=== PATIENT | female | born 1960 | race Caucasian/White ===

== ENCOUNTER 2021-11-11 12:24 | Emergency (ER) | payer OTHER, SELFPAY ==
[2021-11-11] VITALS (15 sets, daily range): BP systolic 96–114; BP diastolic 57–74; PULSE 83–144; RESP 14–23; TEMP 36.8; O2SAT 94–100
--- NOTE | ~2021-11-11 | XR_ITS ---
EXAMINATION: XR chest 2V DATE: 11/11/2021 12:52 INDICATION: Chest pain. TECHNIQUE: Frontal and lateral views of the chest were obtained. COMPARISON: Rib radiographs 07/19/2010 FINDINGS: The chest demonstrates clear lungs without pneumonia, pleural effusion, or pneumothorax. Th e heart size is normal. IMPRESSION: 1. No acute cardiopulmonary disease. Reviewed, dictated and finalized at location A.
--- NOTE | 2021-11-11 12:26 | ECG_ITS ---
Measurements Intervals [place] Rate: 140 P: TN: 0 QRS: -3 QRSD: 103 T: 7 QT: 291 QTc: 444 Interpretive Statements SUPRAVENTRICULAR TACHYCARDIA ST DEPRESSION Electronically Signed On 11-12-2021 8:21:30 CDT by Nathen Lemus M.D.
[2021-11-11 12:41] LABS: Basophils Percent Auto 0.2 % (0.2-1.2); Eosinophils Absolute Auto 0.2 K/mm3 (0-0.3); Eosinophils Percent Auto 1.3 % (0-4.4); Hematocrit 35.1 % (37.0-47.0); Immature Granulocyte Absolute 0.09 K/mm3 (0.00-0.031); Immature Granulocyte Percent A 0.6 % (0-0.5); Lymphocytes Absolute Auto 1.54 K/mm3 (0.9-3.2); Lymphocytes Percent Auto 10.8 % (18.3-44.2); Mean Corpuscular HGB Conc 31.3 g/dl (32-36); Mean Corpuscular Hemoglobin 26.3 pg (26-34); Mean Platelet Volume 10.1 fl (7.4-10.4); Monocytes Absolute Auto 1.1 K/mm3 (0.1-0.6); Monocytes Percent Auto 7.5 % (2.6-8.5); Neutrophils Absolute Auto 11.3 K/mm3 (1.3-6.7); Neutrophils Percent Auto 79.6 % (45.5-73.1); Platelet Count Result 355 k/mm3 (150-375); Red Blood Count 4.18 M/mm3 (4.2-5.4); Red Cell Distribution Width 16.1 % (11.5-14.5); White Blood Count 14.2 K/mm3 (4.5-10.0)
[2021-11-11 12:53] LABS: INR 1.1; Prothrombin Time 13.5 Seconds (11.1-14.7)
[2021-11-11 12:54] LABS: Alanine Aminotransferase 16 U/L (6-35); Albumin Level 4.1 g/dL (3.5-5.1); Alkaline Phosphatase 102 U/L (38-126); Anion Gap 9 mmol/L (8-16); Aspartate Amino Transferase 23 U/L (14-36); Bilirubin,Total 0.2 mg/dL (0.2-1.3); Blood Urea Nitrogen 25 mg/dL (7-17); Calcium 9.2 mg/dL (8.4-10.2); Carbon Dioxide 24 mmol/L (22-30); Chloride 103 mmol/L (98-107); Estimated CRCL calculation 63 ml/min; Estimated Glomerular Filt Rate > 60; Glucose 127 mg/dL (65-110); Lipase 85 U/L (23-300); Partial Thromboplastin Time 29.7 SECONDS (22.3-36.8); Potassium 4.2 mmol/L (3.4-5.0); Sodium 136 mmol/L (137-145)
[2021-11-11] MEDS: dilTIAZem HCl INJ 25 MG/5 ML VIAL 15 MG IV PUSH (12:55)
[2021-11-11 13:04] LABS: Troponin I < 0.012 ng/mL (0.000-0.034)
--- NOTE | 2021-11-11 13:49 | ED.ARRPALP ---
HPI - Arrhythmia/Palpitations General Chief Complaint: Arrhythmia/Palpitations Stated Complaint: heart palpatations History of Present Illness HPI narrative: Patient is a 61-year-old female who presents ER with heart palpitations. Feels like her heart is racing and began this morning. Its worse when she exerts herself. No chest pain or pressure. No difficulty breathing. No exertional dyspnea. She does not feel lightheaded. She reports she has history of atrial fibrillation. Her drapery sewer hand is Dr. Presley. She takes digoxin. No other rate control medications. Patient is not anticoagulated. Related Data Home Medications Medication Instructions Recorded Confirmed venlafaxine 25 mg tablet 25 mg PO DAILY 10/24/20 Allergies Allergy/AdvReac Type Severity Reaction Status Date / Time No Known Allergies Allergy Unknown Verified 05/23/21 13:48 Review of Systems Review of Systems: All systems reviewed & are unremarkable except as noted in HPI and below Constitutional: Constitutional: Denies chills, Denies fatigue and Denies fever(s) Cardiovascular: Cardiovascular: Denies chest pain, Reports rapid heart rate and Denies radiating jaw, neck or arm pain Respiratory: Respiratory: Denies cough and Denies dyspnea Gastrointestinal: Gastrointestinal: Denies abdominal pain, Denies diarrhea, Denies nausea and Denies vomiting Neurologic: Denies syncope, Denies headache(s) and Denies focal weakness PMFSH Past Medical History Medical History (Updated 11/11/21 @ 13:59 by Srini Olson MD) Atrial fibrillation Depression Rheumatoid arthritis with rheumatoid factor of multiple sites without organ or systems involvement (~2009) Tubal Surgical History Surgical History H/O foot surgery History of partial hysterectomy Family History Family History Father Alcohol abuse Cancer Diabetes mellitus Mother Cancer Hypertension Cerebrovascular accident Heart disease Sibling Alcohol abuse Asthma Diabetes mellitus Depression Exam Narrative: GENERAL: Well-appearing, well-nourished, and in no acute distress. HEAD: Normocephalic, atraumatic. EYES: PERRL and EOMI. NECK: Supple. CHEST: Clear to auscultation. No respiratory distress. HEART: Tachycardic and regular. Normal peripheral pulses. ABDOMEN: Soft, nontender, nondistended. EXTREMITIES: Normal range of motion. Trace edema. SKIN: Warm, dry, no rash. NEURO: Alert and oriented x3. PSYCH: Normal mood and affect. Course Course Emergency Course: Spoke with Dr. Marin who is medical education manager for Dr. Presley. Patient had received diltiazem 10 mg and converted to sinus tachycardia with rate of 80 bpm and blood pressure 113/61 mmHg. Discussed that patient is not anticoagulated and not on any other rate control medication outside of digoxin. He would like the patient to start metoprolol 25 mg twice daily. Patient educated on treatment plan and verbalized understanding. Discussed results. Vital Signs Vital signs: Vital Signs Temperature 98.3 F 11/11/21 12:21 Pulse Rate 144 H 11/11/21 12:21 Respiratory Rate 17 11/11/21 12:21 Blood Pressure 114/74 11/11/21 12:21 Pulse Oximetry 95 11/11/21 12:21 Oxygen Delivery Room Air 11/11/21 12:21 Temperature 98.3 F 11/11/21 12:21 Pulse Rate 84 11/11/21 13:16 Respiratory Rate 17 11/11/21 13:16 Blood Pressure 108/59 L 11/11/21 13:16 Pulse Oximetry 98 11/11/21 13:16 Oxygen Delivery Room Air 11/11/21 12:21 MDM - Arrhythmia/Palpitations Lab Data Result diagrams: 11/11/21 12:35 11/11/21 12:35 Labs: Lab Results 11/11/21 11/11/21 11/11/21 Range/Units 12:35 12:35 12:35 WBC 14.2 H (4.5-10.0) K/mm3 RBC 4.18 L (4.2-5.4) M/mm3 Hgb 11.0 L (12.0-15.0) g/dL Hct 35.1 L (37.0-47.0) % MCV 84.0 (80-100) fl MCH 26.3 (26
== END 2021-11-11 14:38 | disposition home or self-care (01) ==
PROVIDERS: Emergency Provider Emergency Medicine; PCP Internal Medicine
DX: I48.91 Unspecified atrial fibrillation (principal); R00.0 Tachycardia, unspecified; F32.9 Major depressive disorder, single episode, unspecified; M06.9 Rheumatoid arthritis, unspecified
CPT/HCPCS: 36415; 71046; 80053; 83690; 84484; 85025; 85610; 85730; 93005; 96374; 99284

== ENCOUNTER 2022-06-16 00:03 | Day surgery (SDC) | payer OTHER, SELFPAY ==
[2022-06-05 11:53] VITALS: BMI 25.9
[2022-06-16 06:52] VITALS: BP 148/59; PULSE 80; RESP 18; TEMP 36.2; O2SAT 100
[2022-06-16] MEDS: LACTATED RINGERS 1,000 ML 150 ML IV CONT (07:18)
--- NOTE | 2022-06-16 07:22 | P.PNAN_ITS ---
Anes - Initial Pre Proc Eval Procedure: Operation Date: 06/16/22 08:00 Proposed Procedures p Screening Colonoscopy - Leonard Tovar MD Date/Time: 06/16/22 07:22 Surgeon: Leonard Tovar MD Pre Op Diagnosis: neoplasm screening Patient Data Age: 61 Gender: F Height: 1.7 m Weight: 75.6 kg Last Vital Signs Temp 36.2 C L 06/16/22 06:52 Pulse 80 06/16/22 06:52 Resp 18 06/16/22 06:52 BP 148/59 H 06/16/22 06:52 Pulse Ox 100 06/16/22 06:52 O2 Del Method Room Air 06/16/22 06:52 Allergies Allergy/AdvReac Type Severity Reaction Status Date / Time No Known Allergies Allergy Unknown Verified 06/16/22 06:52 Home Medications Medication Instructions Recorded Confirmed Type venlafaxine 25 mg tablet 25 mg PO DAILY 10/24/20 06/05/22 History folic acid 1 mg tablet 1 mg PO DAILY #90 tabs 05/23/21 06/05/22 Rx methotrexate sodium 2.5 mg tablet 25 mg PO WEEKLY #120 tabs 05/23/21 06/05/22 Rx metoprolol tartrate 25 mg tablet 25 mg PO BID #30 tabs 11/11/21 06/05/22 Rx ferrous sulfate 325 mg (65 mg 325 mg PO DAILY 03/21/22 06/05/22 History iron) tablet (iron) apixaban 2.5 mg tablet (Eliquis) 2.5 mg PO BID 06/16/22 06/16/22 History Patient hx anesthesia problems: none Family hx anesthesia problems: none Results Review: All pre-operative results and documents have been reviewed as part of the pre-operative evaluation. [facility]LY [facility] Past Medical History Medical History Atrial fibrillation Depression Rheumatoid arthritis with rheumatoid factor of multiple sites without organ or systems involvement (~2009) Tubal Surgical History Surgical History H/O foot surgery History of partial hysterectomy Family History Family History Father Alcohol abuse Cancer Diabetes mellitus Mother Cancer Hypertension Cerebrovascular accident Heart disease Sibling Alcohol abuse Asthma Diabetes mellitus Depression Social History Social History Smoking status: Never smoker Alcohol intake: never Substance use type: does not use Living arrangements: with family Spiritual care concerns: No Anes - Eval Final PreProcedure Day of Procedure 06/16/22 07:22 Patient weight: overweight Heart: regular rate and rhythm Lungs: clear to auscultation and normal air movement Airway: Mallampati scale class II Neurological: alert and oriented Last oral intake: >/= 8 hours ASA classification: III Emergent: no Anesthetic plan: proceed Anesthesia type and monitoring: general GIVS Results Review: All pre-operative results and documents have been reviewed as part of the pre- operative evaluation. Informed Consent: The patient's anesthetic plan and its attendant risks and benefits were discussed with the patient/family/POA. Questions were solicited and answers provided to the satisfaction of the patient/family/POA.
--- NOTE | 2022-06-16 07:41 | SUR.PREOP ---
Patient states about a week ago she was prescribed a blood thinner - she thinks eliquis. Patient spoke with Dr Tovar and states patient needs to be rescheduled. IV discontinued and patient given instructions to call office to reschedule.
== END 2022-06-16 07:45 | disposition home or self-care (01) ==
PROVIDERS: Visit Provider Internal Medicine Gastroenterology
PROC: 0DJD8ZZ Inspection of Lower Intestinal Tract, Via Natural or Artificial Opening Endoscopic (ICD-10-PCS; CPT 45378; principal; 2022-06-16 08:00)
DX: Z12.11 Encounter for screening for malignant neoplasm of colon (principal); Z53.09 Procedure and treatment not carried out because of other contraindication; Z79.01 Long term (current) use of anticoagulants
CPT/HCPCS: 99212; G0463; J7120

== ENCOUNTER 2022-10-14 00:15 | Day surgery (SDC) | payer OTHER, SELFPAY ==
--- NOTE | 2022-07-17 09:45 | WPDANESEPPF ---
Anes - Initial Pre Proc Eval Procedure: Operation Date: 07/18/22 10:15 Proposed Procedures p Screening Colonoscopy - Leonard Tovar MD Date/Time: 07/17/22 09:45 Surgeon: Leonard Tovar MD Pre Op Diagnosis: neoplasm screening Patient Data Age: 61 Gender: F Height: Weight: Allergies Allergy/AdvReac Type Severity Reaction Status Date / Time No Known Allergies Allergy Unknown Verified 06/16/22 06:52 Home Medications Medication Instructions Recorded Confirmed Type venlafaxine 25 mg tablet 25 mg PO DAILY 10/24/20 06/05/22 History folic acid 1 mg tablet 1 mg PO DAILY #90 tabs 05/23/21 06/05/22 Rx methotrexate sodium 2.5 mg tablet 25 mg PO WEEKLY #120 tabs 05/23/21 06/05/22 Rx metoprolol tartrate 25 mg tablet 25 mg PO BID #30 tabs 11/11/21 06/05/22 Rx ferrous sulfate 325 mg (65 mg 325 mg PO DAILY 03/21/22 06/05/22 History iron) tablet (iron) apixaban 2.5 mg tablet (Eliquis) 2.5 mg PO BID 06/16/22 06/16/22 History sodium,potassium,mag sulfates 17.5 See Rx Instructions PO .COMPLEX 06/24/22 Rx gram-3.13 gram-1.6 gram oral soln #354 mL (Suprep Bowel Prep Kit) Results Review: All pre-operative results and documents have been reviewed as part of the pre-operative evaluation. FOR[facility]LY [facility] Past Medical History Medical History Atrial fibrillation Depression Rheumatoid arthritis with rheumatoid factor of multiple sites without organ or systems involvement (~2009) Tubal Surgical History Surgical History H/O foot surgery History of partial hysterectomy Family History Family History Father Alcohol abuse Cancer Diabetes mellitus Mother Cancer Hypertension Cerebrovascular accident Heart disease Sibling Alcohol abuse Asthma Diabetes mellitus Depression Social History Social History Smoking status: Never smoker Alcohol intake: never Substance use type: does not use Living arrangements: with family Spiritual care concerns: No Anes - Eval Final PreProcedure Day of Procedure 07/17/22 09:45 Patient weight: obese Heart: regular rate and rhythm Lungs: clear to auscultation Airway: Mallampati scale class II Neurological: alert and oriented Last oral intake: >/= 8 hours ASA classification: III Emergent: no Anesthetic plan: proceed Anesthesia type and monitoring: general GIVS and standard monitoring Results Review: All pre-operative results and documents have been reviewed as part of the pre-operative evaluation. Informed Consent: The patient's anesthetic plan and its attendant risks and benefits were discussed with the patient/family/POA. Questions were solicited and answers provided to the satisfaction of the patient/family/POA.
[2022-10-03 13:27] VITALS: BMI 25.9
[2022-10-14 08:25] VITALS: BP 138/72; PULSE 64; RESP 18; TEMP 36.3; O2SAT 93
[2022-10-14] MEDS: LACTATED RINGERS 1,000 ML 150 ML IV CONT (08:37)
--- NOTE | 2022-10-14 08:54 | PM.HPGS ---
History of Present Illness History of Present Illness Consent: Risks, benefits, and alternatives have been discussed and questions answered. Patient agrees to proceed with procedure. Chief complaint: neoplasm screening Narrative: Olga Plasencia is a 62 year old female Presents for screening colonoscopy. Patient reports that her current weight appetite and bowel movements are normal. Patient denies abdominal pain. She has had no bleeding. Family history noncontributory. Previous colonoscopy 2007 was unremarkable. She has been treated with atrial fibrillation which currently appears under control. Review of Systems Review of Systems: Review of systems noncontributory. [facility] Past Medical History Medical History Atrial fibrillation Depression Rheumatoid arthritis with rheumatoid factor of multiple sites without organ or systems involvement (~2009) Tubal Surgical History Surgical History H/O foot surgery History of partial hysterectomy Family History Family History Father Alcohol abuse Cancer Diabetes mellitus Mother Cancer Hypertension Cerebrovascular accident Heart disease Sibling Alcohol abuse Asthma Diabetes mellitus Depression Social History Social History Smoking status: Never smoker Alcohol intake: current Substance use: never Substance use type: does not use Living arrangements: with family Spiritual care concerns: No Meds Home Medications and Allergies Home Medications Medication Instructions Recorded Confirmed Type venlafaxine 25 mg tablet 25 mg PO DAILY 10/24/20 10/03/22 History folic acid 1 mg tablet 1 mg PO DAILY #90 tabs 05/23/21 10/03/22 Rx methotrexate sodium 2.5 mg tablet 25 mg PO WEEKLY #120 tabs 05/23/21 10/03/22 Rx metoprolol tartrate 25 mg tablet 25 mg PO BID #30 tabs 11/11/21 10/14/22 Rx ferrous sulfate 325 mg (65 mg 325 mg PO DAILY 03/21/22 10/03/22 History iron) tablet (iron) apixaban 2.5 mg tablet (Eliquis) 2.5 mg PO BID 06/16/22 10/03/22 History digoxin 125 mcg (0.125 mg) tablet 125 mcg PO DAILY 07/14/23 07/14/23 History rosuvastatin 20 mg tablet 20 mg PO DAILY 10/03/22 10/03/22 History valacyclovir 1 gram tablet 2,000 mg PO BID PRN FLARE-UP 10/03/22 10/03/22 History Allergies Allergy/AdvReac Type Severity Reaction Status Date / Time losartan Allergy Unknown Verified 10/14/22 08:21 Vital Signs Vital Signs - 24 hr 10/14/22 08:25 Temperature 97.4 F L Pulse Rate 64 Respiratory Rate 18 Blood Pressure 138/72 Pulse Oximetry 93 Oxygen Delivery Room Air Exam Narrative: Physical exam reveals patient to be alert. Vital signs stable. HEENT exam is unremarkable. Patient is anicteric. Lungs are clear to auscultation and percussion. Heart is without murmur or extra sounds. Abdomen bowel sounds are present soft nontender with no organomegaly. Digital external rectal exam normal. Assessment and Plan Assessment and plan (1) Encounter for screening colonoscopy: Code(s): Z12.11 - Encounter for screening for malignant neoplasm of colon Status: Acute Assessment and Plan: Patient presents today for screening colonoscopy. She appears to be at average risk for colon polyps. Further recommendations may be given after endoscopy.
--- NOTE | 2022-10-14 08:58 | WPDANESEPPF ---
Anes - Initial Pre Proc Eval Procedure: Operation Date: 10/14/22 09:00 Proposed Procedures p Screening Colonoscopy - Leonard Tovar MD Date/Time: 10/14/22 08:58 Surgeon: Leonard Tovar MD Pre Op Diagnosis: neoplasm screening Patient Data Age: 62 Gender: F Height: 1.7 m Weight: 76.6 kg Last Vital Signs Temp 97.4 F L 10/14/22 08:25 Pulse 64 10/14/22 08:25 Resp 18 10/14/22 08:25 BP 138/72 10/14/22 08:25 Pulse Ox 93 10/14/22 08:25 O2 Del Method Room Air 10/14/22 08:25 Allergies Allergy/AdvReac Type Severity Reaction Status Date / Time losartan Allergy Unknown Verified 10/14/22 08:21 Home Medications Medication Instructions Recorded Confirmed Type venlafaxine 25 mg tablet 25 mg PO DAILY 10/24/20 10/03/22 History folic acid 1 mg tablet 1 mg PO DAILY #90 tabs 05/23/21 10/03/22 Rx methotrexate sodium 2.5 mg tablet 25 mg PO WEEKLY #120 tabs 05/23/21 10/03/22 Rx metoprolol tartrate 25 mg tablet 25 mg PO BID #30 tabs 11/11/21 10/14/22 Rx ferrous sulfate 325 mg (65 mg 325 mg PO DAILY 03/21/22 10/03/22 History iron) tablet (iron) apixaban 2.5 mg tablet (Eliquis) 2.5 mg PO BID 06/16/22 10/03/22 History digoxin 125 mcg (0.125 mg) tablet 125 mcg PO DAILY 10/03/22 10/03/22 History rosuvastatin 20 mg tablet 20 mg PO DAILY 10/03/22 10/03/22 History valacyclovir 1 gram tablet 2,000 mg PO BID PRN FLARE-UP 10/03/22 10/03/22 History Patient hx anesthesia problems: none Family hx anesthesia problems: none Results Review: All pre-operative results and documents have been reviewed as part of the pre-operative evaluation. [facility] Past Medical History Medical History Atrial fibrillation Depression Rheumatoid arthritis with rheumatoid factor of multiple sites without organ or systems involvement (~2009) Tubal Surgical History Surgical History H/O foot surgery History of partial hysterectomy Family History Family History Father Alcohol abuse Cancer Diabetes mellitus Mother Cancer Hypertension Cerebrovascular accident Heart disease Sibling Alcohol abuse Asthma Diabetes mellitus Depression Social History Social History Smoking status: Never smoker Alcohol intake: current Substance use: never Substance use type: does not use Living arrangements: with family Spiritual care concerns: No Anes - Eval Final PreProcedure Day of Procedure 10/14/22 08:58 Patient weight: normal Heart: irregular rhythm Lungs: clear to auscultation Airway: Mallampati scale class II Neurological: alert and oriented Last oral intake: >/= 8 hours ASA classification: III Emergent: no Anesthetic plan: proceed Anesthesia type and monitoring: general GIVS and standard monitoring Results Review: All pre-operative results and documents have been reviewed as part of the pre-operative evaluation. Informed Consent: The patient's anesthetic plan and its attendant risks and benefits were discussed with the patient/family/POA. Questions were solicited and answers provided to the satisfaction of the patient/family/POA.
[2022-10-14 09:36] VITALS: BP 136/82; PULSE 66; RESP 18; O2SAT 98
[2022-10-14 09:46] VITALS: BP 143/65; PULSE 64; RESP 18; O2SAT 100
[2022-10-14 09:57] VITALS: BP 144/68; PULSE 65; RESP 20; O2SAT 100
== END 2022-10-14 10:04 | disposition home or self-care (01) ==
PROVIDERS: Visit Provider Internal Medicine Gastroenterology
PROC: 0DJD8ZZ Inspection of Lower Intestinal Tract, Via Natural or Artificial Opening Endoscopic (ICD-10-PCS; CPT 45378; principal; 2022-10-14 09:00)
DX: Z12.11 Encounter for screening for malignant neoplasm of colon (principal); I48.91 Unspecified atrial fibrillation; M05.89 Other rheumatoid arthritis with rheumatoid factor of multiple sites; F32.A Depression, unspecified; Z79.01 Long term (current) use of anticoagulants
CPT/HCPCS: 45378; J2001; J2704; J7120

== ENCOUNTER → 2022-11-19 15:38 | Outpatient (CLI) | payer OTHER, SELFPAY ==
--- NOTE | ~2022-11-19 | DEXA_ITS ---
Bone Density Report Name: CARMELITA QUINTANILLA Age: 62 Sex: Female Ethnicity: White Date of : 1960 Indication: postmenopausal; screening for osteoporosis; height loss; history of glucocorticoids; hysterectomy; rheumatoid arthritis; Referring Provider: Ash, Twyla Zhou Study: Bone densitometry was performed. Exam Date: November 19, 2022 Accession number: [id number] Bone Density: Region BMD T-score Z-score Classification AP Spine (L1, L2, L3) 0.998 -0.2 1.3 Normal Femoral Neck (Left) 0.704 -1.3 0.1 Osteopenia Total Hip (Left) 0.852 -0.7 0.3 Normal Femoral Neck (Right) 0.761 -0.8 0.6 Normal Total Hip (Right) 0.875 -0.5 0.5 Normal Total Hip Mean 0.864 -0.6 0.4 Normal World Health Organization criteria for BMD impression classify patients as: Normal (T-score at or above -1.0), Osteopenia (T-score between -1.0 and -2.5), or Osteoporosis (T-score at or below -2.5). 10-year Fracture Risk(1): Major Osteoporotic Fracture 16% Hip Fracture 1.6% Reported Risk Factors: [place] (), Neck BMD=0.704, BMI=27.7, glucocorticoids, rheumatoid arthritis (1) FRAX(R) Version 3.08. Fracture probability calculated for an untreated patient. Fracture probability may be lower if the patient has received treatment. Previous Exams: Region Exam Age BMD T-score BMD Change BMD Change Date g/cm2 vs Baseline vs Previous AP Spine(L1, L2, L3) 11/19/2022 62 0.998 -0.2 -0.008 -0.032* 09/01/2015 54 1.030 0.1 0.023* 0.023* 05/20/2012 51 1.006 -0.1 Total Hip(Left) 11/19/2022 62 0.852 -0.7 -0.046* -0.061* 09/01/2015 54 0.913 -0.2 0.016 0.016 05/20/2012 51 0.897 -0.4 Total Hip(Right) 11/19/2022 62 0.875 -0.5 -0.047* -0.087* 09/01/2015 54 0.962 0.2 0.040* 0.040* 05/20/2012 51 0.922 -0.2 *Denotes significance at 95% confidence level, LSC for AP Spine = 0.022 g/cm2, LSC for Total Hip = 0.027 g/cm2 Clinical Information Provided by Patient: Has taken Glucocorticoids Has rheumatoid arthritis Has used the following medications: Vitamin D, MTV Has the following medical conditions: Hysterectomy Patient maximum height was 67.0 Menopause Age: 41 No regular weight bearing exercise Drinks caffeinated beverages Onset of menses at age 15 Number of children 2 Impression: The patient has low bone mass, based on the Left F
== END ==
PROVIDERS: PCP Nurse Practitioner Obstetrics & Gynecology; Visit Provider Nurse Practitioner Obstetrics & Gynecology
DX: M85.80 Other specified disorders of bone density and structure, unspecified site (principal); M85.852 Other specified disorders of bone density and structure, left thigh
CPT/HCPCS: 77080

== ENCOUNTER → 2022-12-12 07:56 | Outpatient (CLI) | payer OTHER, SELFPAY ==
--- NOTE | ~2022-12-12 | MMUS_ITS ---
EXAMINATION: MM diagnostic candelaria BI w trung, US breast BI limited HISTORY: Palpable bilateral breast abnormalities TECHNIQUE: Additional 3-D tomosynthesis images of the breasts were performed and synthetic 2-D images were generated. CAD analysis was submitted and interpreted. High resolution limited bilateral breast ultrasound was performed. COMPARISON: Comparison to multiple prior studies sequentially, with oldest reviewed study dated 10/2013. BREAST PARENCHYMAL COMPOSITION: Breast composed of scattered areas of fibroglandular density FINDINGS: MAMMOGRAPHIC FINDINGS: The breasts are stable. No new masses, calcifications or architectural distortion in either breast to suggest malignancy. ULTRASOUND: Limited bilateral breast ultrasound: Normal heterogeneous echotexture in the area of palpable concern bilaterally. No suspicious masses. IMPRESSION: 1. No evidence for malignancy in either breast. 2. Routine yearly screening mammogram and regular clinical breast examination are recommended. BI-RADS Category 1: Negative Reviewed, dictated and finalized at location A. IMPRESSION: 1. No evidence for malignancy in either breast. 2. Routine yearly screening mammogram and regular clinical breast examination a re recommended. BI-RADS Category 1: Negative
== END ==
PROVIDERS: PCP Nurse Practitioner Obstetrics & Gynecology; Visit Provider Nurse Practitioner Obstetrics & Gynecology
DX: N63.20 Unspecified lump in the left breast, unspecified quadrant (principal); N63.10 Unspecified lump in the right breast, unspecified quadrant; R92.2 Inconclusive mammogram
CPT/HCPCS: 76642; 77062; 77066; G0279

== ENCOUNTER 2024-03-11 14:04 | Outpatient (CLI) | payer MEDICAID, SELFPAY ==
--- NOTE | ~2024-03-11 | MM_ITS ---
EXAMINATION: MM screening candelaria BI w trung HISTORY: Screening TECHNIQUE: Craniocaudal and mediolateral oblique 3-D tomosynthesis images were obtained and synthetic 2-D images were generated. CAD analysis was submitted and interpreted. COMPARISON: Comparison to multiple prior studies sequentially, with oldest reviewed study dated 07/12. BREAST PARENCHYMAL COMPOSITION: Not Dense: The breasts are almost entirely fatty. FINDINGS: There is no evidence of suspicious mass, calcification, or architectural distortion to sugg est malignancy in either breast. There has been no suspicious interval change. IMPRESSION: 1. No mammographic evidence of malignancy. 2. Recommend routine screening mammography in one year. BI-RADS Category 1: Negative Reviewed, dictated and finalized at location B. [employer]
== END 2024-03-11 14:05 | disposition home or self-care (01) ==
DX: Z12.31 Encounter for screening mammogram for malignant neoplasm of breast (principal)
CPT/HCPCS: 77063; 77067